=== PATIENT | male | born 1990 | race Caucasian/White ===

== ENCOUNTER 2016-12-23 13:05 | Emergency (ER) | payer MEDICAID ==
[2016-12-23 13:54] VITALS: BP 152/94
== END 2016-12-23 14:22 | disposition home or self-care (01) ==
LOC: ED 13:05
DX: M25.512 Pain in left shoulder (principal)
CPT/HCPCS: J2270; J2405; Q0092

== ENCOUNTER 2018-10-09 22:42 | Emergency (ER) | payer MEDICAID, OTHER ==
[~2018-10-09] VITALS: Ht 180.3 cm; Wt 99.8 kg
[2018-10-09 23:19] VITALS: BP 130/80; Ht 180.3 cm; Wt 99.8 kg
== END 2018-10-10 02:05 | disposition home or self-care (01) ==
LOC: ED 22:42
DX: S82.832A Other fracture of upper and lower end of left fibula, initial encounter for closed fracture (principal); I10 Essential (primary) hypertension; M10.9 Gout, unspecified; S93.402A Sprain of unspecified ligament of left ankle, initial encounter; X50.1XXA Overexertion from prolonged static or awkward postures, initial encounter; Y93.64 Activity, baseball; Y92.320 Baseball field as the place of occurrence of the external cause; Y99.8 Other external cause status

== ENCOUNTER 2019-03-11 11:09 | Emergency (ER) | payer MEDICAID, OTHER ==
[~2019-03-11] VITALS: Ht 180.3 cm; Wt 122.5 kg
[2019-03-11 11:13] VITALS: Ht 180.3 cm; Wt 122.5 kg
[2019-03-11 11:40] VITALS: BP 160/92
== END 2019-03-11 11:40 | disposition home or self-care (01) ==
LOC: ED 11:09
DX: J20.9 Acute bronchitis, unspecified (principal); I10 Essential (primary) hypertension; M10.9 Gout, unspecified

== ENCOUNTER 2019-03-20 22:35 | Emergency (ER) | payer MEDICAID, OTHER ==
[~2019-03-20] VITALS: Ht 180.3 cm; Wt 118.8 kg
[2019-03-20 22:49] VITALS: Ht 180.3 cm; Wt 118.8 kg
[2019-03-20 23:59] VITALS: BP 168/110
== END 2019-03-20 23:59 | disposition home or self-care (01) ==
LOC: ED 22:35
DX: S06.0X0A Concussion without loss of consciousness, initial encounter (principal); S16.1XXA Strain of muscle, fascia and tendon at neck level, initial encounter; I10 Essential (primary) hypertension; Z88.8 Allergy status to other drugs, medicaments and biological substances; Z90.49 Acquired absence of other specified parts of digestive tract; W01.0XXA Fall on same level from slipping, tripping and stumbling without subsequent striking against object, initial encounter; Y93.67 Activity, basketball; Y92.310 Basketball court as the place of occurrence of the external cause; Y99.8 Other external cause status
CPT/HCPCS: Q0162

== ENCOUNTER 2019-05-15 01:52 | Emergency (ER) | payer MEDICAID, OTHER ==
[~2019-05-15] VITALS: Ht 180.3 cm; Wt 113.4 kg
[2019-05-15 01:57] VITALS: Ht 180.3 cm; Wt 113.4 kg
[2019-05-15 03:01] LABS: CARBON DIOXIDE 29.3 mmol/L (21-32); CHLORIDE SERUM 103 mmol/L (98-107); CREATININE SERUM 0.9 mg/dL (0.7-1.3); GFR1 > 60 mL/min; GLUCOSE SERUM 93 mg/dL (74-106); POTASSIUM SERUM 3.6 mmol/L (3.5-5.1); SODIUM SERUM 143 mmol/L (136-145)
[2019-05-15 03:03] LABS: ALBUMIN 4.4 g/dL (3.4-5.0); ALKALINE PHOSPHATASE 89 U/L (46-116); ALT/SGPT 67 U/L (16-63); AST/SGOT 29 U/L (15-37); BILIRUBIN TOTAL 1.14 mg/dL (0.20-1.00)
[2019-05-15 03:06] LABS: BASOPHIL % 0.6 % (0-2); PLATELET COUNT 234 x10^3mcL (130-400); RED CELL DISTRIBUTION WIDTH 11.8 % (11.5-14.5)
[2019-05-15 05:23] VITALS: BP 141/87
== END 2019-05-15 05:23 | disposition home or self-care (01) ==
LOC: ED 01:52
PROVIDERS: Emergency Medicine
DX: M94.0 Chondrocostal junction syndrome [Tietze] (principal); I10 Essential (primary) hypertension; M10.9 Gout, unspecified
CPT/HCPCS: 36415; 85378; J1885; Q0092

== ENCOUNTER 2019-09-04 00:49 | Emergency (ER) | payer OTHER, MEDICAID ==
[~2019-09-04] VITALS: Ht 180.3 cm; Wt 107.0 kg
[2019-09-04 00:56] VITALS: Ht 180.3 cm; Wt 107.0 kg
[2019-09-04 03:00] VITALS: BP 126/82
== END 2019-09-04 03:00 | disposition home or self-care (01) ==
LOC: ED 00:49
DX: J02.9 Acute pharyngitis, unspecified (principal); I10 Essential (primary) hypertension; Z88.8 Allergy status to other drugs, medicaments and biological substances
CPT/HCPCS: 87804; J1885

== ENCOUNTER 2019-12-26 19:52 | Emergency (ER) | payer OTHER, MEDICAID ==
[~2019-12-26] VITALS: Ht 434.3 cm; Wt 113.4 kg
[2019-12-26 20:00] VITALS: Ht 434.3 cm; Wt 113.4 kg
[2019-12-26 22:14] VITALS: BP 139/81
== END 2019-12-26 22:14 | disposition home or self-care (01) ==
LOC: ED 19:52
DX: L50.9 Urticaria, unspecified (principal); I10 Essential (primary) hypertension; M10.9 Gout, unspecified; Z88.8 Allergy status to other drugs, medicaments and biological substances
CPT/HCPCS: J0171; J7512

== ENCOUNTER 2020-01-31 22:41 | Emergency (ER) | payer OTHER, MEDICAID ==
[~2020-01-31] VITALS: Ht 180.3 cm; Wt 111.1 kg
[2020-01-31 22:44] VITALS: Ht 180.3 cm; Wt 111.1 kg
[2020-01-31 23:19] LABS: BASOPHIL % 0.4 % (0-2); PLATELET COUNT 249 x10^3mcL (130-400); RED CELL DISTRIBUTION WIDTH 12.6 % (11.5-14.5)
[2020-01-31 23:30] LABS: CARBON DIOXIDE 28.8 mmol/L (21-32); CHLORIDE SERUM 103 mmol/L (98-107); GFR1 > 60 mL/min; GLUCOSE SERUM 88 mg/dL (74-106); SODIUM SERUM 140 mmol/L (136-145)
[2020-01-31 23:36] LABS: ALBUMIN 4.5 g/dL (3.4-5.0); ALKALINE PHOSPHATASE 82 U/L (46-116); ALT/SGPT 62 U/L (16-63); AST/SGOT 165 U/L (15-37); BILIRUBIN TOTAL 0.52 mg/dL (0.20-1.00); LIPASE 132 IU/L (73-393); TOTAL PROTEIN, SERUM 8.1 g/dL (6.4-8.2)
[2020-02-01 01:50] VITALS: BP 136/84
== END 2020-02-01 01:50 | disposition home or self-care (01) ==
LOC: ED 22:41
DX: K29.70 Gastritis, unspecified, without bleeding (principal); I10 Essential (primary) hypertension; Z88.8 Allergy status to other drugs, medicaments and biological substances; Z90.49 Acquired absence of other specified parts of digestive tract
CPT/HCPCS: J2270; J2405; J7030; Q0092

== ENCOUNTER 2020-02-29 22:19 | Emergency (ER) | payer OTHER, MEDICAID ==
[~2020-02-29] VITALS: Ht 180.3 cm; Wt 111.1 kg
[2020-02-29 22:22] VITALS: Ht 180.3 cm; Wt 111.1 kg
[2020-02-29 23:52] VITALS: BP 155/81
== END 2020-02-29 23:52 | disposition home or self-care (01) ==
LOC: ED 22:19
DX: T78.49XA Other allergy, initial encounter (principal); I10 Essential (primary) hypertension; M10.9 Gout, unspecified; Z90.49 Acquired absence of other specified parts of digestive tract; Z88.8 Allergy status to other drugs, medicaments and biological substances; Z91.010 Allergy to peanuts; X58.XXXA Exposure to other specified factors, initial encounter
CPT/HCPCS: J1200; J2930

== ENCOUNTER 2020-05-29 01:07 | Emergency (ER) | payer OTHER, MEDICAID ==
[~2020-05-29] VITALS: Ht 180.3 cm; Wt 111.1 kg
[2020-05-29 01:11] VITALS: Ht 180.3 cm; Wt 111.1 kg
[2020-05-29 01:56] LABS: BASOPHIL % 0.4 % (0-2); PLATELET COUNT 264 x10^3mcL (130-400); RED CELL DISTRIBUTION WIDTH 12.2 % (11.5-14.5)
[2020-05-29 02:19] LABS: CALCIUM 9.2 mg/dL (8.5-10.1); CARBON DIOXIDE 30.1 mmol/L (21-32); CHLORIDE SERUM 100 mmol/L (98-107); GFR1 > 60 mL/min; GLUCOSE SERUM 89 mg/dL (74-106); POTASSIUM SERUM 3.4 mmol/L (3.5-5.1); SODIUM SERUM 140 mmol/L (136-145)
[2020-05-29 02:24] LABS: ALBUMIN 4.7 g/dL (3.4-5.0); ALKALINE PHOSPHATASE 76 U/L (46-116); ALT/SGPT 73 U/L (16-63); AST/SGOT 30 U/L (15-37); BILIRUBIN TOTAL 0.7 mg/dL (0.20-1.00); CHOLESTEROL 198 mg/dL (<200); CHOLESTEROL/HDL RATIO 3.4; HDL CHOLESTEROL 58 mg/dL (40-60); TRIGLYCERIDES 80 mg/dL (<150)
[2020-05-29 02:29] LABS: TOTAL PROTEIN, SERUM 8.5 g/dL (6.4-8.2)
[2020-05-29 02:40] LABS: FREE T4 1.2 ng/dL (0.76-1.46); FREE THYROXINE INDEX 3.6 ug/dL (1.4-4.5); T4(THYROXINE) 9.6 ug/dL (4.7-13.3)
[2020-05-29 02:51] LABS: T3 TOTAL 1.59 ng/mL
[2020-05-29 03:11] VITALS: BP 138/81
[2020-05-29 03:36] LABS: UA SPECIFIC GRAVITY >=1.030 (1.005-1.035); microscopic required? YES; urine erythrocyte TRACE (NEGATIVE)
[2020-05-29 04:16] LABS: AMPHETAMINE QUAL UR NONE DETECTED (See below)
== END 2020-05-29 03:11 | disposition home or self-care (01) ==
LOC: ED 01:07
PROVIDERS: Specialist
DX: I10 Essential (primary) hypertension (principal); Z91.010 Allergy to peanuts; Z88.8 Allergy status to other drugs, medicaments and biological substances
CPT/HCPCS: 83880; 84439; Q0092